=== PATIENT | female | born 1985 ===

== ENCOUNTER 2016-12-08 01:51 | Emergency (ER) | payer BC ==
[~2016-12-08] VITALS: Ht 167.6 cm; Wt 70.4 kg
[2016-12-08 01:59] VITALS: TEMP 36.8; Ht 167.6 cm; Wt 70.4 kg
[2016-12-08] MEDS ORDERED: XYLOCAINE 1%/SOD BICARB 20 ML VIAL INFIL ONE (02:07)
[2016-12-08] MEDS ORDERED: IBUPROFEN 600 MG TAB PO STA (02:24)
--- NOTE | 2016-12-08 02:24 | EMERGENCY ROOM VISIT NOTE ---
ED Visit Note First contact with patient: 02:04 CHIEF COMPLAINT: left arm laceration HISTORY OF PRESENT ILLNESS: This 30 patient presents to the emergency department with friend after cutting the left forearm after accidentally cutting it on glass. The bleeding has not stopped. Denies weakness or numbness of the extremity. patient has full range of motion of the extremity The patient rates the pain as mild and 2/10. The patient denies any other injuries. The patient's tetanus shot is up to date. REVIEW OF SYSTEMS: A 6 system review of systems was completed with positives and pertinent negatives listed in the HPI. ALLERGIES: None MEDICATIONS: None PMH: Nono SOCIAL HISTORY: No drug use PHYSICAL EXAM: Vital Signs: Reviewed Nurse's notes, vital signs stable. GENERAL : Pleasant female, in no acute distress, well developed, well nourished. SKIN: There is a 3 cm and 2.6 cm long laceration on the left forearm. The edges gape apart with traction. There is no foreign material in the wound and it looks clean. There is bleeding. No deep structures such as tendons, bones, or significant blood vessels are seen in the base of the wounds. Extension and flexion of the extremity is full and strong. Full range of motion of the extremity. Capillary refill less than 2 seconds. Normal sensation to light and sharp touch. EMERGENCY DEPARTMENT COURSE: I examined the patient. Using sterile technique the wound was cleansed with Betadine. 3 ml of 1% buffered lidocaine was used to anesthetize the patient. The area was sterilely draped. Once the patient was anesthetized, the wound was copiously irrigated under pressure with sterile saline. The wounds were explored and there were no deep structures injured. The laceration was repaired using total of 8 simple interrupted 4-0 nylon sutures for both lacerations The patient tolerated the procedure well. Hemostasis was achieved. The area was cleaned with sterile saline and dressed with bacitracin ointment and bandage. The patient was discharged home in good condition. Differential diagnosis includes laceration, tendon injury, vascular injury and other etiologies were considered. DIAGNOSIS: 2 left forearm lacerations DISCHARGE INSTRUCTIONS & TREATMENT: Keep wound clean and dry. Do not allow any crusting or dried blood to accumulate on sutures. If this occurs, use a 1:1 solution of hydrogen peroxide/water on a Q-tip to clean the wound. Use an antibiotic ointment for 3-4 days, then let wound dry. Suture removal in 10-12 days. Return sooner for any signs of infection (increasing redness, swelling, drainage). Ice and elevate for swelling and pain. Ibuprofen 600 mg and Tylenol 1000 mg every 6 hrs for pain. Keep covered when in sun until sutures removed then SPF 50 or higher for one year. Vitamin E oil if desired two weeks after suture removal for reduction of scar. Allergies Coded Allergies: No Known Allergies (Unverified , 12/08/16) Vital Signs Date Time Temp Pulse Resp B/P Pulse Ox O2 Delivery O2 Flow Rate FiO2 12/08/16 01:59 36.8 101 20 121/78 99 Room Air Medications Administered Medications (Trade) Dose Ordered Sig/Sanjiv Route Start Time Stop Time Status Last Admin Dose Admin Lidocaine HCl (Buffered Lidocaine 1% Inj) 20 ml STK-MED ONCE INFIL 12/08/16 02:07 12/08/16 02:08 DC 12/08/16 02:07 20 ML Departure Information Impression Primary Impression: Laceration of arm, left, multiple sites Dispostion Home / Self-Care Condition GOOD Forms HOME CARE DOCUMENTATION FORM, IMPORTANT VISIT INFORMATION Patient Instructions [facility], ED Laceration All Additional Instructions Keep wound clean and dry. Do not allow any crusting or dried blood to accumulate on sutures. If this occurs, use a 1:1 solution of hydrogen peroxide/ water on a Q-tip to clean the wound. Use an antibiotic ointment for 3-4 days, then let wound dry. Suture removal in 10-12 days. Return sooner for any signs of infection (increasing redness, swelling, drainage). Ice and elevate for swelling and pain. Ibuprofen 600 mg and Tylenol 1000 mg every 6 hrs for pain. Keep covered when in sun until sutures removed then SPF 50 or higher for one year. Vitamin E oil if desired two weeks after suture removal for reduction of scar
[2016-12-08 02:57] VITALS: BP 117/49; PULSE 90; O2SAT 99
== END 2016-12-08 02:59 | disposition home or self-care (01) ==
LOC: C.EDB 01:53
DX: S51.812A Laceration without foreign body of left forearm, initial encounter (principal); W45.8XXA Other foreign body or object entering through skin, initial encounter